=== PATIENT | male | born 1985 | race Caucasian/White ===

== ENCOUNTER 2020-11-19 16:56 | Emergency (ER) | payer SELFPAY ==
[~2020-11-19] VITALS: Ht 185.4 cm; Wt 81.6 kg
--- NOTE | 2020-11-19 17:16 | NUR ---
Patient discharged to home in stable condition. Written and verbal after care instructions given. Patient verbalizes understanding of instructions. Stressed follow up or return to ER for worsening s/s.
== END 2020-11-19 17:16 | disposition home or self-care (01) ==
LOC: ER 16:56
DX: K08.539 Fractured dental restorative material, unspecified (principal); K08.89 Other specified disorders of teeth and supporting structures
CPT/HCPCS: A4663